=== PATIENT | female | born 1970 ===

== ENCOUNTER 2017-02-05 02:23 | Emergency (ER) | payer MEDICAID ==
[2017-02-05 02:36] VITALS: TEMP 97.5
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
[2017-02-05 03:33] VITALS: BP 130/80; PULSE 80; RESP 14
[2017-02-05 05:38] VITALS: O2SAT 98
== END 2017-02-05 03:33 | disposition home or self-care (01) ==
LOC: C.ER 02:23
DX: T14.8 Other injury of unspecified body region (principal); Y09 Assault by unspecified means

== ENCOUNTER 2017-02-05 13:37 | Emergency (ER) | payer MEDICAID ==
[2017-02-05 13:52] VITALS: RESP 20
--- NOTE | 2017-02-05 15:13 | CT ---
PROCEDURE: CT HEAD WITHOUT CONTRAST. HISTORY: left side hematoma s.p fall COMPARISON: None available. TECHNIQUE: Axial computed tomography images were obtained through the head/brain without intravenous contrast. Radiation dose: Total exam DLP = 808.8 mGy-cm. This CT exam was performed using one or more of the following dose reduction techniques: Automated exposure control, adjustment of the mA and/or kV according to patient size, and/or use of iterative reconstruction technique. FINDINGS: HEMORRHAGE: No intracranial hemorrhage. BRAIN: No mass effect or edema. No atrophy or chronic microvascular ischemic changes. VENTRICLES: Unremarkable. No hydrocephalus. CALVARIUM: Unremarkable. PARANASAL SINUSES: Unremarkable as visualized. No significant inflammatory changes. MASTOID AIR CELLS: Complete opacification of the left mastoid. OTHER FINDINGS: None. IMPRESSION: No evidence of acute intracranial hemorrhage or acute pathology in the brain. Left frontal scalp soft tissue hematoma and swelling. Complete opacification of the left mastoid. Correlate clinically for mastoiditis.
--- NOTE | 2017-02-05 15:37 | C.PDOC ---
History Of Present Illness The patient, a 47 y/o female, presents to the ED for evaluation of a headache after she sustained a head injury earlier today. Patient states she accidentally tripped and fell, which led to her injury. Contrary to triage, patient denies dizziness as the cause of her fall. However, patient does report that she experienced dizziness after her fall, and denies such symptoms currently in the ED. She denies LOC, vision change, nausea, vomiting, extremity numbness/weakness. Time Seen by Provider: 02/05/17 14:03 Chief Complaint (Nursing): Dizziness/Lightheaded History Per: Patient History/Exam Limitations: no limitations Injury Occurred (Timing): Just Before Arrival Onset/Duration Of Symptoms: Hrs Patient States: Fell Striking Head Loss Of Consciousness: No Additional History Per: Patient Past Medical History Reviewed: Historical Data, Nursing Documentation, Vital Signs Vital Signs: Last Vital Signs Temp 97.9 F 02/05/17 16:12 Pulse 64 02/05/17 16:12 Resp 20 02/05/17 16:12 BP 94/61 L 02/05/17 16:12 Pulse Ox 97 02/05/17 16:44 - Medical History PMH: Bipolar Disorder Surgical History: No Surg Hx Family History: States: Unknown Family Hx - Social History Hx Alcohol Use: No Hx Substance Use: No - Immunization History Hx Tetanus Toxoid Vaccination: No Hx Influenza Vaccination: No Hx Pneumococcal Vaccination: No Review Of Systems Constitutional: Negative for: Weakness, Malaise Eyes: Negative for: Vision Change Cardiovascular: Negative for: Chest Pain, Palpitations Respiratory: Negative for: Cough, Shortness of Breath Gastrointestinal: Negative for: Nausea, Vomiting Neurological: Positive for: Headache, Dizziness. Negative for: Weakness, Numbness, Other (LOC ) Physical Exam - Physical Exam Appears: Non-toxic, No Acute Distress Skin: Warm, Dry, Other (+superficial abrasions to b/l knees ) Head: Normacephalic, No Laceration, Other (+left frontal hematoma ) Eye(s): bilateral: Normal Inspection, PERRL, EOMI, Other (no nystagmus) Nose: Normal, No Septal Hematoma Oral Mucosa: Moist Neck: Normal ROM, Supple Chest: Symmetrical, No Deformity, No Tenderness Cardiovascular: Rhythm Regular, No Murmur Respiratory: Normal Breath Sounds, No Rales, No Rhonchi, No Wheezing Back: Normal Inspection, No Vertebral Tenderness, No Paraspinal Tenderness Extremity: Normal ROM, No Tenderness, No Calf Tenderness, No Deformity, No Swelling Neurological/Psych: Oriented x3, Normal Speech, Normal Motor, Normal Sensation, Other (no focal deficits ) Gait: Steady ED Course And Treatment O2 Sat by Pulse Oximetry: 97 (on RA) Pulse Ox Interpretation: Normal Medical Decision Making Medical Decision Making: Impression: 47 y/o female with headache s/p fall Plan: * CT Head * Tylenol PO * reassess and disposition Progress Notes: CT shows no evidence of acute intracranial hemorrhage or acute pathology in the brain. Left frontal scalp soft tissue hematoma and swelling. Patient remained alert and oriented with no neuro deficits and stable vital signs. Discussed CT results with patient and provide copy of report. Patient stable for discharge. Disposition Counseled Patient/Family Regarding: Need For Followup, Rx Given - Disposition Disposition: HOME/ ROUTINE Disposition Time: 15:36 Condition: STABLE Additional Instructions: Your CT shows no intracranial bleed or fracture Take any pain medicine as needed Instructions: Hematoma (ED) - POA Present On Arrival: None - Clinical Impression Clinical Impression: Hematoma of frontal scalp - PA / TERMINAL OPERATOR / Resident Statement MD/DO has reviewed & agrees with the documentation as recorded. - Scribe Statement The provider has reviewed the documentation as recorded by the Scribe (Magdalena Leroy) All medical record entries made by the Scribe were at my direction and personally dictated by me. I have reviewed the chart and agree that the record accurately reflects my personal performance of the history, physical exam, medical decision making, and the department course for this patient. I have also personally directed, reviewed, and agree with the discharge instructions and disposition.
[2017-02-05 16:14] VITALS: BP 94/61; PULSE 64; TEMP 97.9
[2017-02-05 16:39] VITALS: O2SAT 97
== END 2017-02-05 16:12 | disposition home or self-care (01) ==
LOC: C.ER 13:37
DX: S00.03XA Contusion of scalp, initial encounter (principal); W01.0XXA Fall on same level from slipping, tripping and stumbling without subsequent striking against object, initial encounter

== ENCOUNTER 2017-10-20 10:03 | Emergency (ER) | payer MEDICAID, OTHER ==
[2017-10-20 10:07] VITALS: BMI 32.3
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
[2017-10-20 10:25] VITALS: RESP 18
[2017-10-20] MEDS ORDERED: Sodium Chloride 0.9% 1,000 ML IV ONE (10:28)
[2017-10-20 11:30] LABS: BASO # 0.1 K/uL (0.0-0.2); BASO % 1.2 % (0.0-2.0); EOS # 0.3 K/uL (0.0-0.7); EOS % 5.9 % (0.0-4.0); HEMOGLOBIN 11.4 g/dL (11.0-16.0); LYMPH # 1.5 K/uL (1.0-4.3); LYMPH % 27.4 % (20.0-40.0); MEAN CELL VOLUME 95.6 fL (81.0-99.0); MEAN CORPUSCULAR HEMOGLOBIN 32.9 pg (27.0-31.0); MEAN CORPUSCULAR HGB CONC 34.4 g/dL (33.0-37.0); MEAN PLATELET VOLUME 8.2 fL (7.2-11.7); MONO # 0.4 K/uL (0.0-0.8); MONO % 8.2 % (0.0-10.0); NEUT # 3.1 K/uL (1.8-7.0); NEUT % 57.3 % (50.0-75.0); RBC 3.46 Mil/uL (3.80-5.20); RED CELL DISTRIBUTION WIDTH 16.3 % (11.5-14.5); WHITE BLOOD COUNT 5.4 K/uL (4.8-10.8)
--- NOTE | 2017-10-20 11:33 | RAD ---
HISTORY: sob COMPARISON: No prior. TECHNIQUE: Chest PA and lateral FINDINGS: LUNGS: Bibasilar crowding is appreciated on the frontal view. No focal infiltrate is seen. Trachea is midline. PLEURA: No significant pleural effusion identified. No pneumothorax apparent. CARDIOVASCULAR: Heart is top normal in size. OSSEOUS STRUCTURES: Mild degenerative changes are seen in the spine. VISUALIZED UPPER ABDOMEN: Normal. OTHER FINDINGS: None. IMPRESSION: Mild bibasilar crowding possibly related to poor expiratory effort. No focal infiltrate or CHF.
[2017-10-20 11:38] LABS: HCG,QUALITATIVE URINE NEGATIVE (NEGATIVE)
[2017-10-20 11:41] LABS: SQUAMOUS EPITHIAL 3 /hpf (0-5); URINE BACTERIA RARE (<OCC); URINE BILIRUBIN NEGATIVE (NEGATIVE); URINE BLOOD NEGATIVE (NEGATIVE); URINE CLARITY Clear (Clear); URINE COLOR Yellow (YELLOW); URINE GLUCOSE (UA) NORMAL (Normal); URINE LEUKOCYTE ESTERASE 2+ Leu/uL (Negative); URINE NITRATE NEGATIVE (NEGATIVE); URINE PROTEIN NEGATIVE (NEGATIVE); URINE UROBILINOGEN NORMAL mg/dL (0.2-1.0)
[2017-10-20 11:51] LABS: ALB/GLOB RATIO 1.4 (1.0-2.1); ALBUMIN 4.6 g/dL (3.5-5.0); ALT/SGPT 65 U/L (9-52); AST/SGOT 114 U/L (14-36); BLOOD UREA NITROGEN 18 mg/dL (7-17); CALCIUM 8.1 mg/dl (8.6-10.4); GFR AFRICAN-AMERICAN > 60; GFR NON-AFRICAN AMERICAN 53
[2017-10-20 12:03] LABS: B-TYPE NATRIURETIC PEPTIDE 12.8 pg/mL (0-450)
[2017-10-20 13:01] VITALS: BP 105/73; PULSE 88; O2SAT 93
[2017-10-20 13:11] VITALS: TEMP 99.2
== END 2017-10-20 13:13 | disposition home or self-care (01) ==
LOC: C.ER 10:03
DX: R42 Dizziness and giddiness (principal)
CPT/HCPCS: 71046; 80053; 81001; 82948; 83880; 84484; 84703; 85025; 85378; 96360; 99285; J7040

== ENCOUNTER 2018-04-23 13:10 | Emergency (ER) | payer MEDICAID, OTHER ==
[2018-04-23 13:11] VITALS: BMI 32.3
[2018-04-23 13:23] VITALS: BP 107/62; PULSE 74; RESP 16; TEMP 98; O2SAT 98
--- NOTE | 2018-04-23 14:28 | C.PDOC ---
History Of Present Illness 48yo female, comes to ER for evaluation of left lower back pain, radiating down her leg. Patient is unsure how the pain started and states she has been walking with a mild limp. She denies any numbness, tingling, saddle anesthesia, bowel or bladder dysfunction, or incontinence. Patient is a poor historian.denies trauma. pt has had this pain before. Time Seen by Provider: 04/23/18 13:43 Chief Complaint (Nursing): Lower Extremity Problem/Injury History Per: Patient History/Exam Limitations: no limitations Onset/Duration Of Symptoms: Days Current Symptoms Are (Timing): Still Present Additional History Per: Patient Past Medical History Reviewed: Historical Data, Nursing Documentation, Vital Signs Vital Signs: Last Vital Signs Temp 98 F 04/23/18 13:21 Pulse 74 04/23/18 13:21 Resp 16 04/23/18 13:21 BP 107/62 04/23/18 13:21 Pulse Ox 98 04/23/18 22:22 - Medical History PMH: Anxiety, Bipolar Disorder, Depression, Seizures Surgical History: No Surg Hx Family History: States: No Known Family Hx, Unknown Family Hx - Social History Hx Alcohol Use: No Hx Substance Use: No - Immunization History Hx Tetanus Toxoid Vaccination: No Hx Influenza Vaccination: No Hx Pneumococcal Vaccination: No Review Of Systems Genitourinary: Negative for: Incontinence, Other (saddle anesthesia) Musculoskeletal: Positive for: Back Pain (left lower back), Leg Pain (left) Neurological: Negative for: Weakness, Numbness Physical Exam - Physical Exam Appears: Non-toxic, No Acute Distress Skin: Normal Color, Warm, Dry Head: Atraumatic, Normacephalic Eye(s): bilateral: Normal Inspection Neck: Supple Chest: Symmetrical Cardiovascular: Rhythm Regular Respiratory: Normal Breath Sounds Back: Paraspinal Tenderness (left paralumbar tenderness), No Straight Leg Raising, Other (+ tenderness over left sciatic notch) Extremity: Normal ROM, No Tenderness, No Pedal Edema, No Calf Tenderness, No Deformity Neurological/Psych: Oriented x3, Normal Motor, Normal Sensation ED Course And Treatment O2 Sat by Pulse Oximetry: 98 (RA) Pulse Ox Interpretation: Normal Medical Decision Making Medical Decision Making: Impression: lower back pain, likely sciatica Plan: -- Toradol 30mg IM -- UPreg POC Progress: -- Patient reports marked improvement in pain. pt ambulating around ED with no difficulty UPreg negative. Patient instructed to take pain medications as prescribed and to follow up in clinic in 2-3 days. Disposition Counseled Patient/Family Regarding: Diagnosis, Need For Followup, Rx Given - Disposition Referrals: [facility] at [facility] [Outside] Disposition: HOME/ ROUTINE Disposition Time: 14:27 Condition: IMPROVED Additional Instructions: Please follow up in medical clinic. Call for an appointment. Take Naproxen as prescribed. Prescriptions: Naproxen 500 mg PO BID #20 tab Instructions: Sciatica (DC) Forms: General Discharge Instructions, [facility] (Khmer) - Clinical Impression Clinical Impression: Sciatica - PA / CLAY WORKER / Resident Statement MD/DO has reviewed & agrees with the documentation as recorded. - Scribe Statement The provider has reviewed the documentation as recorded by the Fe Sharif Provider Attestation: All medical record entries made by the Fe were at my direction and personally dictated by me. I have reviewed the chart and agree that the record accurately reflects my personal performance of the history, physical exam, medical decision making, and the department course for this patient. I have also personally directed, reviewed, and agree with the discharge instructions and disposition.
== END 2018-04-23 14:43 | disposition home or self-care (01) ==
LOC: C.ER 13:10
DX: M54.30 Sciatica, unspecified side (principal)
CPT/HCPCS: 96372; 99283; J1885

== ENCOUNTER 2018-06-08 11:05 | Emergency (ER) | payer MEDICAID ==
[2018-06-08 11:05] VITALS: BMI 32.3
[2018-06-08 11:13] VITALS: BP 111/76; PULSE 66; TEMP 97.8; O2SAT 96
--- NOTE | 2018-06-08 11:23 | C.PDOC ---
Time Seen by Provider: 06/08/18 11:13 Past Medical History Vital Signs: Last Vital Signs Temp 97.8 F 06/08/18 11:12 Pulse 66 06/08/18 11:12 Resp 20 06/08/18 11:12 BP 111/76 06/08/18 11:12 Pulse Ox 96 06/08/18 11:12 - Medical History PMH: Anxiety, Bipolar Disorder, Depression, Seizures Family History: States: Unknown Family Hx - Social History Hx Alcohol Use: No Hx Substance Use: No - Immunization History Hx Tetanus Toxoid Vaccination: No Hx Influenza Vaccination: No Hx Pneumococcal Vaccination: No ED Course And Treatment O2 Sat by Pulse Oximetry: 96 Disposition Counseled Patient/Family Regarding: Diagnosis, Need For Followup - Disposition Referrals: [facility] [Outside] [facility] at [facility] [Outside] Disposition: HOME/ ROUTINE Disposition Time: 11:21 Condition: GOOD Instructions: Alcohol Abuse and Alcoholism (DC) - Clinical Impression Clinical Impression: Malingerer
--- NOTE | 2018-06-08 11:24 | C.PDOC ---
History Of Present Illness 48 year old female is brought into the emergency department for possible alcohol intoxication. She states that she was sleeping in her lutheran, but she feels fine at the moment. Time Seen by Provider: 06/08/18 11:13 Chief Complaint (Nursing): Medical Clearance History Per: Patient History/Exam Limitations: no limitations Onset/Duration Of Symptoms: Hrs Current Symptoms Are (Timing): Still Present Additional History Per: EMS Past Medical History Reviewed: Historical Data, Nursing Documentation, Vital Signs Vital Signs: Last Vital Signs Temp 97.8 F 06/08/18 11:17 Pulse 66 06/08/18 11:17 Resp 20 06/08/18 11:17 BP 111/76 06/08/18 11:17 Pulse Ox 96 06/08/18 11:24 - Medical History PMH: Anxiety, Bipolar Disorder, Depression, Seizures Surgical History: No Surg Hx Family History: States: Unknown Family Hx - Social History Hx Alcohol Use: No Hx Substance Use: No - Immunization History Hx Tetanus Toxoid Vaccination: No Hx Influenza Vaccination: No Hx Pneumococcal Vaccination: No Review Of Systems Except As Marked, All Systems Reviewed And Found Negative. Constitutional: Negative for: Fever, Chills Gastrointestinal: Negative for: Nausea Neurological: Positive for: Altered Mental Status (alcohol intoxication) Physical Exam - Physical Exam Appears: Non-toxic, No Acute Distress, Unkempt (disheveled) Skin: Warm, Dry Head: Atraumatic, Normacephalic Eye(s): bilateral: Normal Inspection Oral Mucosa: Moist, Other (alcohol on breath) Neck: Normal, Supple Chest: Symmetrical Cardiovascular: Rhythm Regular, No Murmur Respiratory: Normal Breath Sounds, No Rales, No Rhonchi, No Wheezing Extremity: Normal ROM Neurological/Psych: Oriented x3, Normal Speech, Normal Cognition ED Course And Treatment O2 Sat by Pulse Oximetry: 96 (RA) Pulse Ox Interpretation: Normal Disposition - Disposition Referrals: [facility] [Outside] [facility] [Outside] Instructions: Alcohol Abuse and Alcoholism (DC) Forms: [facility] (Tajik) - Clinical Impression Clinical Impression: Malingerer - Scribe Statement The provider has reviewed the documentation as recorded by the Scribe (Dallas Austin) Provider Attestation: All medical record entries made by the Scribe were at my direction and personally dictated by me. I have reviewed the chart and agree that the record accurately reflects my personal performance of the history, physical exam, medical decision making, and the department course for this patient. I have also personally directed, reviewed, and agree with the discharge instructions and disposition.
[2018-06-08 11:30] VITALS: RESP 16
== END 2018-06-08 11:29 | disposition home or self-care (01) ==
LOC: C.ER 11:05
DX: Z76.5 Malingerer [conscious simulation] (principal)

== ENCOUNTER 2018-07-09 21:04 | Emergency (ER) | payer MEDICAID ==
[2018-07-09 21:05] VITALS: BMI 32.3
[2018-07-09 21:15] VITALS: BP 136/79; PULSE 89; RESP 18; TEMP 98.5; O2SAT 98
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
== END 2018-07-09 22:31 | disposition home or self-care (01) ==
LOC: SUPCPDRO 21:04 → C.ER 21:04
DX: M54.32 Sciatica, left side (principal); Z59.0 Homelessness

== ENCOUNTER 2019-01-21 20:36 | Emergency (ER) | payer MEDICAID ==
[2019-01-21 20:37] VITALS: BMI 32.3
[2019-01-21 20:51] VITALS: BP 124/80; PULSE 61; RESP 18; TEMP 97.7; O2SAT 98
--- NOTE | 2019-01-21 21:01 | C.PDOC ---
Time Seen by Provider: 01/21/19 20:56 Chief Complaint (Nursing): Medical Clearance Past Medical History Vital Signs: Last Vital Signs Temp 97.7 F 01/21/19 20:48 Pulse 61 01/21/19 20:48 Resp 18 01/21/19 20:48 BP 124/80 01/21/19 20:48 Pulse Ox 98 01/21/19 20:48 - Medical History PMH: Anxiety, Bipolar Disorder, Depression, Seizures Denies: Chronic Kidney Disease Family History: States: Unknown Family Hx - Social History Hx Alcohol Use: No Hx Substance Use: No - Immunization History Hx Tetanus Toxoid Vaccination: No Hx Influenza Vaccination: Yes Hx Pneumococcal Vaccination: No ED Course And Treatment O2 Sat by Pulse Oximetry: 98 Disposition - Disposition Disposition Time: 21:00 Condition: UNKNOWN Forms: [facility] (Wallisian) - POA Present On Arrival: Cath Associated UTI - Clinical Impression Clinical Impression: Patient left without being seen
== END 2019-01-21 20:56 | disposition left against medical advice (07) ==
LOC: C.ER 20:36
DX: Z02.89 Encounter for other administrative examinations (principal)